=== PATIENT | female | born 1945 | race Caucasian/White ===

== ENCOUNTER → 2018-02-16 | Outpatient (REF) | payer MEDICARE ==
[2018-02-16 14:33] LABS: FREE T4 0.79 NG/DL (0.76-1.46)
== END ==
LOC: M LAB REF 12:55
DX: N18.3 Chronic kidney disease, stage 3 (moderate) (principal); R63.5 Abnormal weight gain
CPT/HCPCS: 84443

== ENCOUNTER → 2020-03-18 | Outpatient (REF) | payer MEDICARE | LOC: M LAB REF 16:46 | PROVIDERS: ATTEND Internal Medicine Nephrology | DX: N18.32 Chronic kidney disease, stage 3b (principal); N39.0 Urinary tract infection, site not specified ==

== ENCOUNTER 2020-10-26 17:05 | Inpatient (IN) | payer MEDICARE ==
[~2020-10-26] VITALS: Ht 154.9 cm; Wt 125.1 kg
[2020-10-26] MEDS: HumaLOG INSULIN (NovoLOG) PER UNIT SC SCH ×2 (18:00→23:25)
[2020-10-26 19:00] VITALS: BP 153/98
[2020-10-26] MEDS ORDERED: AMLO2.5T3 PO (19:18)
[2020-10-26] MEDS ORDERED: METF-838 PO (19:18)
[2020-10-26] MEDS ORDERED: METO1TAB32 PO (19:18)
[2020-10-26] MEDS ORDERED: HUMA100I5 SC ×2 (19:18→19:33)
[2020-10-26] MEDS ORDERED: LEXA1TAB PO (19:18)
[2020-10-26] MEDS ORDERED: MAGN64TASA PO (19:18)
[2020-10-26] MEDS ORDERED: FURO20TA2 PO (19:19)
[2020-10-26] MEDS ORDERED: ATOR1TAB21 PO (19:19)
[2020-10-26] MEDS ORDERED: QUIN40TA26 PO (19:19)
[2020-10-26] MEDS ORDERED: HYDROMORPHONE HCL 0.5 MG/ 0.5 ML SYRINGE (J1170 PER 1) IV PRN ×2 (19:20)
[2020-10-26] MEDS ORDERED: MAALOX 30 ML SUSP *UDC PO PRN (19:20)
[2020-10-26] MEDS ORDERED: MOM 30ML SUSPENSION UDC PO PRN (19:20)
[2020-10-26] MEDS ORDERED: INSU100I9 SC (19:33)
[2020-10-26] MEDS ORDERED: HOME MED LIST COMPLETE! XX SCH (19:35)
--- NOTE | 2020-10-26 19:58 | HPEPDOC ---
[facility] Medical History & Physical Date of Admission Oct 26, 2020 Date of Service: Oct 26, 2020 Attending Physician: YG DAUGHERTY MD History and Physical TIME OF SERVICE: 750pm CHIEF COMPLAINT: fall HISTORY OF PRESENT ILLNESS: , a 75 yr old F, had a fall while walking into the door way. When [facility] pulled the door open, to let her into the house, was holding on to the door handle and fell down. As a result of the fall she developed a right distal Tib/Fib fx; she was transferred here from [facility] for Ortho eval. Currently her pain is well controlled REVIEW OF SYSTEMS: 10-point review of systems negative except as listed in HPI PAST MEDICAL/ SURGICAL HISTORY: IDDM, essential HTN, class 3 obesity, appendectomy SOCIAL HISTORY: She doesnt smoke, drink or use recreational drugs. FAMILY HISTORY: DM & HTN ALLERGIES: Please see below. HOME MEDICATIONS: Please see below. PHYSICAL EXAMINATION: Vital Signs Date Time Temp Pulse Resp B/P (MAP) Pulse Ox O2 Delivery O2 Flow Rate FiO2 10/26/20 19:00 98.2 66 18 153/98 (116) 95 Room Air GENERAL APPEARANCE: well-nourished and developed/ NAD HEENT: EOMI / MMM&P CARDIOVASCULAR: RRR/NMRG LUNGS: CTAB on RA ABDOMEN: contour convex MUSCULOSKELETAL: NCAT / ELOISA x 3 extremities except right LE which is wrapped in a cast INTEGUMENT: not flushed, pale or diaphoretic NEUROLOGICAL: CN 2-12 grossly intact / speech not dysarthric PSYCHIATRIC: A&O x3 / able to understand and follow all commands LABORATORY DATA: pending.... IMAGING: XRAY from [facility] IMPRESSION: Acute fractures of the medial and lateral malleoli with disruption of the ankle mortise. MICROBIOLOGY: Respiratory panel is negative ASSESSMENT: is a75 yr old w HTN and IDDM who was transferred from [facility] for surgical management of right distal tib/fib fxs. PLAN: 1 Distal Tib/Fib Fx 2/2 Mechanical Fall Her RCRI score is 1; prior to surgery we will need to check a BNP, if it is high we will order and EKG and check a troponin daily for then next 2 or 3 days. Othe r than that she doesnt need additional testing prior to preceding with surgery. Plan: admit to [facility] / NPO after midnight w IVF for surgery possibly tomorrow / Ortho consult () / day time team to consult PT & OT / pain control w Dilaudid & Miralax to prevent constipation / when the patient is read for discharge her PCP may consider ordering DEXA scan and performing risk stratification with the use of FRAX score or another other risk stratification to determine if she has Osteoporosis 2 Essential HTN We will hold the ACEI to reduce the risk of perioperative hypotension. It can be resumed on POD #2 Plan: lasix & hydralazine PRN for SBP >140 3 IDDM2 Plan: diabetic diet tonight then NPO with accuchecks Q6H / hypoglycemia protocol / she is only taking high doses of sliding scale insulin with metformin w/o long acting insulin / for now we will c/w SSI / hold oral anti-glycemics / f/u A1C / her PCP may consider out pt Endo referral to switch the patient from basal bolus injections to continuous subcutaneous insulin infusion which has been shown to produced small improvements in A1C, improve QOL and reduce episodes of severe hypoglycemia 4 Class 3 Obesity Complicates care DVT px w Heparin (This can be discontinued at 4H prior to surgery.) (Og Pre diction Score to determine the in-patient risk of VTE & need for anticoagulation is 5. Individuals with a Og Score <4 are low risk of VTE and thromboprophylaxis should be considered on a wesi-li-wblc basis while individuals with a Og score >4 are high risk for VTE and will likely benefit from thromboprophylaxis unless the patient has major contraindication such as major bleeding or thrombocytopenia). Dispo: home after at least 2 midnights stay Home Medications Scheduled Atorvastatin Calcium (Atorvastatin Calcium) 20 Mg Tablet, 20 MG PO QHS Escitalopram Oxalate (Lexapro) 10 Mg Tablet, 10 MG PO DAILY Furosemide (Furosemide) 20 Mg Tablet, 20 MG PO BID 2ND AT NOON Insulin Lispro (Humalog Kwikpen U-100) 100 Unit/1 Ml Insuln.pen, 54 UNITS SC QAM MORNING Insulin Lispro (Insulin Lispro Kwikpen U-100) 100 Unit/1 Ml Insuln.pen, 40 UNIT SC DAILY @ LUNCH Insulin Lispro (Humalog Kwikpen U-100) 100 Unit/1 Ml Insuln.pen, 50 UNITS SC QPM DINNER Magnesium Chloride (Mag64) 64 Mg Tablet.dr, 64 MG PO DAILY Metformin HCl (Metformin HCl ER) 500 Mg Tab.er.24h, 1,000 MG PO BID Metoprolol Succinate (Metoprolol Succinate) 25 Mg Tab.er.24h, 25 MG PO DAILY Quinapril HCl (Quinapril HCl) 40 Mg Tablet, 40 MG PO DAILY Allergies Coded Allergies: Sulfa (Sulfonamide Antibiotics) (Verified Allergy, Intermediate, SWELLING, 10/26/20) A-FIB/CHADSVASC A-FIB History Current/History of A-Fib/PAF?: No Current PO Anticoag Therapy: No YG DAUGHERTY MD Oct 26, 2020 19:58
[2020-10-26] MEDS ORDERED: DEXTROSE 50% 50 ML SYRINGE IV PRN (20:00)
[2020-10-26] MEDS ORDERED: GLUCOSE 4GM CHEW TABLET PO PRN (20:00)
[2020-10-26] MEDS ORDERED: GLUCAGON INJ 1MG VIAL SC PRN (20:00)
[2020-10-26] MEDS: ACETAMINOPHEN TAB 650MG DOSE (2X325MG) PO PRN (20:52)
[2020-10-26] MEDS: MIRALAX *UNIT DOSE* 17GM PACKET PO SCH (20:52)
[2020-10-26 21:24] LABS: HEMATOCRIT 36.2 % (36.0-47.0); HEMOGLOBIN 11.4 g/dl (12.0-15.5); MEAN CORPUSCULAR HEMOGLOBIN 28.9 pg (27.0-33.0); MEAN CORPUSCULAR HGB CONC 31.5 g/dl (32.0-36.5); MEAN CORPUSCULAR VOLUME 91.9 fl (80.0-96.0); PLATELET COUNT, AUTOMATED 188 10^3/uL (150-450); RED BLOOD COUNT 3.94 10^6/uL (4.00-5.40); WHITE BLOOD COUNT 8.3 10^3/uL (4.0-10.0)
[2020-10-26 21:35] LABS: INR 1.13; PROTHROMBIN TIME 14.9 SECONDS (12.7-14.5)
[2020-10-26 21:53] LABS: ALBUMIN 3.2 GM/DL (3.2-5.2); ALT/SGPT 23 U/L (12-78); BILIRUBIN,TOTAL 0.4 MG/DL (0.2-1.0); BLOOD UREA NITROGEN 29 MG/DL (7-18); CALCIUM LEVEL 8.4 MG/DL (8.8-10.2); CARBON DIOXIDE LEVEL 28 MEQ/L (21-32); CHLORIDE LEVEL 106 MEQ/L (98-107); CREATININE FOR GFR 1.25 MG/DL (0.55-1.30); GLOMERULAR FILTRATION RATE 44.6 (>39); GLUCOSE, FASTING 132 MG/DL (70-100); NT-PRO BNP 548 PG/ML (<125); POTASSIUM SERUM 4.4 MEQ/L (3.5-5.1); SODIUM LEVEL 141 MEQ/L (136-145); TOTAL PROTEIN 5.8 GM/DL (6.4-8.2)
[2020-10-26] MEDS ORDERED: HEPARIN SOD (PORCINE) 5000UNITS/ML 1ML VIAL/SYRINGE SC SCH (22:00)
[2020-10-26 22:48] LABS: TROPONIN I < 0.02 NG/ML (< 0.10)
[2020-10-26] MEDS: ATORVASTATIN 20 MG TAB PO SCH (23:24)
[2020-10-27] MEDS ORDERED: D5W/0.9% SODIUM CHLORIDE 1,000 ML IV SCH
[2020-10-27 06:00] VITALS: BP 161/65
[2020-10-27] MEDS: HumaLOG INSULIN (NovoLOG) PER UNIT SC SCH ×3 (06:55→18:00)
[2020-10-27] MEDS ORDERED: MIDAZOLAM INJ 2MG/2ML VIAL (J2250 PER 1MG) IV PRN (07:01)
[2020-10-27] MEDS ORDERED: fentaNYL 100 MCG/2 ML INJECTION (J3010) IV PRN ×2 (07:01→18:35)
[2020-10-27 07:16] LABS: HEMATOCRIT 36.1 % (36.0-47.0); HEMOGLOBIN 11.4 g/dl (12.0-15.5); MEAN CORPUSCULAR HEMOGLOBIN 28.8 pg (27.0-33.0); MEAN CORPUSCULAR HGB CONC 31.6 g/dl (32.0-36.5); MEAN CORPUSCULAR VOLUME 91.2 fl (80.0-96.0); PLATELET COUNT, AUTOMATED 185 10^3/uL (150-450); RED BLOOD COUNT 3.96 10^6/uL (4.00-5.40); WHITE BLOOD COUNT 5.9 10^3/uL (4.0-10.0)
[2020-10-27 07:29] LABS: BLOOD UREA NITROGEN 31 MG/DL (7-18); CALCIUM LEVEL 8.2 MG/DL (8.8-10.2); CARBON DIOXIDE LEVEL 27 MEQ/L (21-32); CHLORIDE LEVEL 106 MEQ/L (98-107); CREATININE FOR GFR 1.26 MG/DL (0.55-1.30); GLOMERULAR FILTRATION RATE 44.2 (>39); GLUCOSE, FASTING 241 MG/DL (70-100); SODIUM LEVEL 139 MEQ/L (136-145); TROPONIN I < 0.02 NG/ML (< 0.10)
[2020-10-27] MEDS ORDERED: QUINAPRIL 20 MG TAB PO SCH (09:00)
--- NOTE | 2020-10-27 09:00 | CR ---
CONSULTATION DATE: 10/26/2020 TIME: 7 pm CONSULTED SERVICE: Orthopaedic surgery. CONSULTED PHYSICIAN: Jd Polo MD HISTORY OF PRESENT ILLNESS: This is a 75-year-old female who sustained a ground level fall while playing with her grandchildren in the afternoon of 10/26/2020. Patient initially presented to [facility] but was transferred to the [facility] for right ankle fracture stabilization status post right ankle fracture. Patient has a diagnosis of a right ankle distal fibular fracture, as well as a medial malleolar fracture. Her fracture is closed. There is no breaks in the skin. She was splinted at the [facility] and she was admitted by the hospitalist for further evaluation and treatment by orthopaedics. PAST MEDICAL HISTORY: Diabetes, hypertension. PAST SURGICAL HISTORY: Patient denies. ALLERGIES: Patient reports SULFA BASED drug allergies. CURRENT MEDICATIONS: Medications for hypertension and diabetes, patient left list at home and is calling her support network for her medication list. SOCIAL HISTORY: Nondrinker, nonsmoker, non-IV drug user. Lives at home alone. Is a community ambulator without assistive devices. REVIEW OF SYSTEMS: 12-point review of systems was negative unless as otherwise described in the history of present illness (HPI) above. PHYSICAL EXAMINATION: Alert and oriented to person, time, and place. She had tenderness to palpation through her splint to the medial and lateral aspect of her right ankle. She had an otherwise neurovascularly intact right lower extremity with 5/5 motor strength to the extensor hallucis longus (EHL), flexor hallucis longus (FHL), tibialis anterior, gastrocnemius, and peroneal musculature. She had sensation intact to light touch to the deep and superficial peroneal, sural, saphenous, and tibial nerve distributions. She had 2+ dorsalis pedis and posterior tibial arterial pulse. Brisk capillary refill to the digits was under 2 seconds with refill. Radiographs demonstrate a distal fibular spiral fracture as well as a medial malleolar fracture. The talus is translated laterally with an unstable bimalleolar ankle fracture. IMPRESSION: 75-year-old female with an unstable right bimalleolar ankle fracture which is closed requiring surgical fixation for stabilization. PLAN: At this point in time, the patient will get her COVID test, which is pending, she will remain nothing by mouth at 11:59 p.m. on 10/26/2020. Given the instability of the patient's right ankle, the patient will require operative intervention for open reduction internal fixation of the right ankle in order to stabilize and promote healing so the patient may walk without pain. The patient will be cared for by the hospitalist and she will undergo surgical fixation on 10/26/2020.
[2020-10-27] MEDS: METOPROLOL SUCC *XL* 25MG TAB (TopROL *XL*) PO SCH (09:04)
[2020-10-27] MEDS: ESCITALOPRAM OXALATE 10 MG TAB (LEXAPRO) PO SCH (09:04)
[2020-10-27] MEDS: FUROSEMIDE 20 MG TAB PO SCH ×2 (09:05→17:00)
[2020-10-27] MEDS ORDERED: LIDOCAINE 1% MDV 20ML VIAL XX ONE (11:50)
[2020-10-27] MEDS ORDERED: dexameTHASONE 10MG/1ML VIAL PRES.FREE (J1100 PER 1MG) XX ONE (11:50)
[2020-10-27] MEDS ORDERED: EPINEPHrine INJ 1 MG/ML 1ML AMP XX ONE (11:50)
[2020-10-27] MEDS ORDERED: ROPIvacaine 0.5% 30ML INJECTION (J2795 PER 1MG) XX ONE (11:50)
[2020-10-27] MEDS ORDERED: fentaNYL 100 MCG/2 ML INJECTION (J3010) IV SCH (11:51)
[2020-10-27] MEDS ORDERED: MIDAZOLAM INJ 2MG/2ML VIAL (J2250 PER 1MG) IV SCH (11:51)
--- NOTE | 2020-10-27 12:03 | IPNPDOC ---
Date Seen The patient was seen on 10/27/20. Progress Note SUBJECTIVE: Complained of headache 10 out of 10 pain with no history of recent trauma or syncopal episode at home after the fall yesterday Some nausea without vomiting no abdominal pain 5 out of 10 pain from the fracture OBJECTIVE PHYSICAL EXAMINATION: VITAL SIGNS: Please see below. GENERAL: No distress HEENT: Face is symmetric tongue is midline no thyromegaly cervical lymphadenopathy or jugular venous distention CARDIOVASCULAR: S1-S2 sinus rhythm RESPIRATORY: Clear to auscultation bilaterally ABDOMINAL: Positive bowel sounds soft obese nontender nondistended EXTREMITIES: No cyanosis or clubbing skin warm dry well perfused pink in color bandaged right lower extremity LABORATORY DATA, IMAGING STUDIES, MICROBIOLOGY: Please see below. ASSESSMENT AND PLAN: 75-year-old female status post mechanical fall at home without prodromal symptoms found to have a right distal tibial fracture t [facility] to [facility] for orthopedic surgical services Mechanical fall Right tib-fib fracture Headache Class III obesity BMI 51 Insulin-dependent type 2 diabetes Hypertension Plan: N.p.o. status IV fluids to prevent hypoglycemia orthopedic surgery for surgical intervention As needed pain medications Reglan and Toradol for headache Hypoglycemic protocol with insulin sliding scale with coverage ARU consult postop and DVT prophylaxis. VS[facility]&O Vital Signs Date Time Temp Pulse Resp B/P (MAP) Pulse Ox O2 Delivery O2 Flow Rate FiO2 10/27/20 09:04 66 152/68 10/27/20 06:00 98.2 17 90 Room Air I&O- Last 24 Hours up to 6 AM 10/27/20 06:00 Intake Total 120 ml Output Total 300 ml Balance -180 ml Laboratory Data 24H LABS Laboratory Tests 2 10/26/20 18:58: Coronavirus (COVID-19)(PCR) NEGATIVE 10/26/20 19:20: Nucleated Red Blood Cells % (auto) 0.0, Prothrombin Time 14.9H, Prothromb Time International Ratio 1.13, Anion Gap 7L, Glomerular Filtration Rate 44.6, Calcium Level 8.4L, Total Bilirubin 0.4, Aspartate Amino Transf (AST/SGOT) 14, Alanine Aminotransferase (ALT/SGPT) 23, Alkaline Phosphatase 65, Troponin I < 0.02, QV-Rfr-D-Type Natriuretic Peptide 548H, Total Protein 5.8L, Albumin 3.2, Albumin/Globulin Ratio 1.2 10/26/20 23:20: Bedside Glucose (Misc Panel) 242H 10/27/20 06:09: Nucleated Red Blood Cells % (auto) 0.0, Anion Gap 6L, Glomerular Filtration Rate 44.2, Calcium Level 8.2L, Troponin I < 0.02 10/27/20 06:20: Bedside Glucose (Misc Panel) 232H 10/27/20 11:31: Bedside Glucose (Misc Panel) 234H CBC/BMP Laboratory Tests 10/26/20 19:20 10/27/20 06:09 JEFERSON GALARZA MD Oct 27, 2020 12:03
[2020-10-27] MEDS ORDERED: LIDOCAINE 2% 100MG/5ML SDV (FOR ANES.) As Ordered ONE (14:41)
[2020-10-27] MEDS ORDERED: fentaNYL 100 MCG/2 ML INJECTION (J3010) As Ordered ONE ×2 (14:41→17:15)
[2020-10-27] MEDS ORDERED: ROCURONIUM BROMIDE 50 MG/5 ML VIAL As Ordered ONE (14:41)
[2020-10-27] MEDS ORDERED: propofoL 200 MG/20 ML VIAL As Ordered ONE (14:41)
[2020-10-27] MEDS ORDERED: TRANEXAMIC ACID 100 MG/ML 10ML VIAL As Ordered ONE ×2 (15:10→15:53)
[2020-10-27] MEDS ORDERED: ceFAZolin 2 GM/D5W 50 ML IV BAG (J0690 PER 500MG) As Ordered ONE (15:10)
[2020-10-27] MEDS ORDERED: ONDANSETRON 4MG/2ML VIAL As Ordered ONE (16:01)
[2020-10-27] MEDS ORDERED: ePHEDrine SULFATE 25 MG/5 ML(5MG/ML) SYRINGE As Ordered ONE (16:10)
[2020-10-27] MEDS ORDERED: ACETAMINOPHEN 1000MG 100ML IV BTL (OFIRMEV) (J0131 PER 10MG) As Ordered ONE (16:25)
[2020-10-27] MEDS ORDERED: SUGAMMADEX SODIUM 500 MG/5 ML VIAL (BRIDION) As Ordered ONE (16:26)
[2020-10-27] MEDS ORDERED: hydrALAZINE 20MG/ML 1ML VIAL (J0360 PER 20MG) As Ordered ONE (16:55)
--- NOTE | 2020-10-27 17:50 | REP ---
INDICATION: FIBULA NAIL IN OR. COMPARISON: None. TECHNIQUE: Intraoperative fluoroscopic imaging using portable C-arm technique. FINDINGS: Status post satisfactory open reduction and fixation for medial and lateral malleolar fractures. Total fluoroscopic time 220.8 seconds. IMPRESSION: Satisfactory open reduction and fixation for by malleolar fractures. <Electronically signed by Arias Mast > 10/27/20 [id number]
--- NOTE | 2020-10-27 18:04 | REPVR ---
PROCEDURE INFORMATION: Exam: XR Right Ankle Exam date and time: 10/26/2020 8:46 PM Age: 75 years old Clinical indication: Other: Preop; Additional info: R ankle fracture TECHNIQUE: Imaging protocol: XR Right ankle. Views: 3 or more views. COMPARISON: No relevant prior studies available. FINDINGS: Bones/joints: In cast views demonstrate a distal fibular and medial malleolar fracture. There is widening of the ankle mortise. Cast obscures bone detail which limits evaluation for additional fractures. Soft tissues: Normal. IMPRESSION: In cast views demonstrate a distal fibular and medial malleolar fracture. There is widening of the ankle mortise. Cast obscures bone detail which limits evaluation for additional fractures. Electronically signed by: Puneet Saleh On 10/27/2020 18:04:07 PM
[2020-10-27] MEDS ORDERED: HumaLOG INSULIN (NovoLOG) PER UNIT SC STA (18:30)
[2020-10-27] MEDS ORDERED: oxyCODONE 5MG TAB PO PRN (18:35)
[2020-10-27] MEDS ORDERED: HYDROMORPHONE HCL 0.5 MG/ 0.5 ML SYRINGE (J1170 PER 1) IV PRN (18:35)
[2020-10-27] MEDS ORDERED: LR 1,000 ML IV SCH (18:35)
[2020-10-27 18:50] VITALS: BP 143/65
[2020-10-27 19:20] VITALS: BP 139/62
--- NOTE | 2020-10-27 19:38 | RO ---
OPERATIVE NOTE DATE OF OPERATION: 10/27/2020 TIME: 3 p.m. PREOPERATIVE DIAGNOSIS: Right closed ankle fracture including the distal fibula and the medial malleolus. POSTOPERATIVE DIAGNOSIS: Right closed ankle fracture including the distal fibula and the medial malleolus. NAME OF OPERATION: Right ankle open reduction and internal fixation. SURGEON: Jd Polo MD PUMP AND BLOWER OPERATOR: None. SUPERVISING ATTENDING: Jd Polo MD FINDINGS: The patient had an unstable right ankle fracture with displacement of the distal fibula as well as the medial malleolus. She had lateral translation of the talus relative to the mortise. INDICATIONS: A 75-year-old female who sustained a closed right ankle fracture after a ground-level fall while playing with her grandchildren in the afternoon of 10/26/2020. The patient initially presented to [facility] but was transferred to [facility] for the right ankle fracture stabilization, status post right ankle fracture. The patient has a diagnosis of a right ankle distal fibular fracture as well as a medial malleolar fracture. The patient's fracture is closed. There are no breaks in the skin. She was splinted at the [facility]. She was admitted by the hospitalist for further and treatment by orthopedic surgery, indicated for right ankle open reduction and internal fixation. ANESTHESIA: GETA. TOURNIQUET TIME: 14 minutes. ESTIMATED BLOOD LOSS: 50 mL. IV FLUIDS: Please see anesthesia report. IV ANTIBIOTICS: Please see anesthesia report. IMPLANTS: Arthrex. CULTURES: None. SPECIMENS: None. DESCRIPTION OF PROCEDURE: The patient was met in the preoperative holding area where the patient's operative extremity was signed, the patient's consent was confirmed to be correct. The patient's identity was confirmed to be correct. The patient was then transported to the operating theater where she was placed in supine position on a regular surgical flat-top bed with a radiolucent diving board extension. A safety strap secured the patient to the bed. All bony prominences were well padded. The contralateral lower extremity had an SCD placed. A timeout was called which confirmed the correct patient, correct operative extremity and correct consent. All staff was in agreement. The patient was then draped in the usual sterile fashion. We began the procedure by obtaining fluoroscopic imaging of the patient's right ankle with an AP and lateral view demonstrating the fracture location. We then ensured that the talus was reduced within the mortise. Using fluoroscopy, we placed a percutaneous [id number] bone reducing clamp to stabilize the distal fibula spiral fracture. Once this was stabilized, we then used a guide pin in order to gain access to the fibular medullary canal in retrograde fashion. Once this was advanced through the fracture and up the proximal aspect of the patient's fibula, we then used this to place our entry cannulated reamer to the level of the laser line. We then repeated this with a thinner reamer up the length of the fibula. Once this was complete, we then used the sled in order to place our fibular nail in position. This was advanced with light taps of the mallet. We then deployed the talons at the proximal aspect of the fibular nail and secured it in position. We then used the jig on the fibular nail to place three distal interlocking screws. At this point in time, we then placed two addition tetracortical syndesmotic screws in order to provide robust stabilization of the patient's distal fibular fracture. At the completion of this, we then turned our attention to the medial malleolar fracture which was now reduced after reduction of the fibular fracture. We made two small percutaneous incisions and placed two guide pins orthogonal to the medial malleolar fracture. Using these guide pins, we then placed two 4.0 mm partially threaded cannulated screws into position using fluoroscopy and percutaneous in nature in order to minimize the chance of wound complications. These were both 60 mm in length. We then removed our threaded guide pin and ensured that these were seated properly on the medial malleolus. We then copiously irrigated all surgical sites. We closed all percutaneous incisions using 2-0 Vicryl and 3-0 nylon suture. We placed Adaptic over the surgical wounds followed by the [id number] and placed the patient in a well-padded L and U splint. The patient was then extubated without complication and transported to the postanesthesia care unit. Given the patient's diabetic medical history, she will be nonweightbearing to the right lower extremity for 12 weeks. She will follow the fibular nail and diabetic ankle open reduction and internal fixation rehabilitative protocol which includes early range of motion at two weeks and nonweightbearing for 12 weeks and two weeks for follow up in the [facility] orthopedic clinic for removal of her L and U splint for a CAM boot which will be provided at [facility]. We will remove her sutures either at 2 or 4 weeks depending on healing. She will then follow up on the November, to follow up with Dr. Polo for a second postoperative wound check. Her care will be transferred to the hospitalist who will provide her discharge pain medication. She will be notified of the aforementioned proceedings at her postoperative visit.
[2020-10-27 20:20] VITALS: BP 140/63
[2020-10-27] MEDS: ATORVASTATIN 20 MG TAB PO SCH (21:00)
[2020-10-27] MEDS: ACETAMINOPHEN TAB 650MG DOSE (2X325MG) PO PRN (21:00)
[2020-10-27] MEDS: MIRALAX *UNIT DOSE* 17GM PACKET PO SCH (21:00)
[2020-10-27 23:20] VITALS: BP 110/53
[2020-10-28] MEDS: HumaLOG INSULIN (NovoLOG) PER UNIT SC SCH ×4 (05:34→21:17)
[2020-10-28 06:00] VITALS: BP 158/67
--- NOTE | 2020-10-28 08:10 | ECGEPIP ---
[facility] Test Date: 2020-10-27 Pat Name: HERSON GAMBLE Department: Room: [place] [address] Gender: Female Outbound Supervisor: SCOTT : [id number] Requested By: YG DAUGHERTY Order Number: [id number] Reading MD: Ulises Cooley Measurements Intervals [place] Rate: 66 P: -20 NV: 186 QRS: -52 QRSD: 156 T: 19 QT: 456 QTc: 478 Interpretive Statements somatic artifact Normal sinus rhythm LA conduction disturbance First-degree AV block Left anterior hemiblock Right bundle branch block No prior tracing for comparison. Clincal correlation advised Electronically Signed on 10-28-2020 8:10:12 EDT by Ulises Cooley
[2020-10-28] MEDS: FUROSEMIDE 20 MG TAB PO SCH ×2 (08:11→16:03)
[2020-10-28] MEDS: ESCITALOPRAM OXALATE 10 MG TAB (LEXAPRO) PO SCH (08:11)
[2020-10-28] MEDS: METOPROLOL SUCC *XL* 25MG TAB (TopROL *XL*) PO SCH (08:13)
[2020-10-28] MEDS: ACETAMINOPHEN TAB 650MG DOSE (2X325MG) PO PRN (09:25)
[2020-10-28] MEDS ORDERED: ENOXAPARIN 40MG/0.4ML SYRINGE (J1650 PER 10MG) SC ONE (10:45)
[2020-10-28 14:00] VITALS: BP 156/66
[2020-10-28] MEDS: PERCOCET 5MG/325MG TAB PO SCH ×2 (16:00→21:00)
--- NOTE | 2020-10-28 17:18 | IPN ---
PROGRESS NOTE DATE: 10/28/2020 SUBJECTIVE: Patient said that her pain started to act up even after taking 2 Tylenol. She does have I.V. medications for breakthrough pain. Her pain worsens when she bears weight and tries to ambulate otherwise she has no pain at all. OBJECTIVE: Vital signs: Temperature 98.2, pulse 66, respiratory rate 16, blood pressure 169/71, 95% on room air. General: Awake, alert, oriented to person, place and time, answering questions appropriately. Lungs: Clear to auscultation, no wheezes, rhonchi or rales. Heart: S1 and S2 sinus rhythm. Abdomen: Obese, soft, nontender, nondistended. Extremities: No cyanosis or clubbing. Right lower extremity is bandaged. LABORATORY DATA: Laboratory data and microbiology have been reviewed. IMAGING STUDIES: Reviewed. ASSESSMENT: 75-year-old female had a mechanical fall at home without prodromal symptoms found to have a right distal tibial fracture and transferred from [facility] to [facility] for orthopedic services. IMPRESSIONS/PLANS: 1. Mechanical fall with right tib-fib fracture: Post-op day number 1 patient is managed by orthopedic surgery. Currently on DVT prophylaxis, bowel regimen, pain control. Since patient has had no pain control with Tylenol we will give Percocet 1 three times a day. ARU has been consulted. Possibly home with services. Patient is anxious to go home soon. 2. Class 3 obesity, BMI 51: Complicating her care. 3. Insulin dependent type-2 diabetes: On insulin sliding scale, fingersticks. Glucose has been elevated to 417 due to recent I.V. fluids given for n.p.o. status. We will start on Levemir insulin 10 units at bedtime and titrate as needed for better glycemic control. 4. Disposition: Await ARU screen. 5. DVT prophylaxis: With Lovenox subcu.
[2020-10-28] MEDS: MIRALAX *UNIT DOSE* 17GM PACKET PO SCH (21:00)
[2020-10-28] MEDS ORDERED: LEVEMIR (INSULIN DETEMIR) 1 UNITS/0.01ML SC SCH (21:00)
[2020-10-28] MEDS: ATORVASTATIN 20 MG TAB PO SCH (21:16)
[2020-10-28 22:00] VITALS: BP 161/64
[2020-10-28] MEDS: **hydrALAZINE** 10 MG TAB PO PRN (23:16)
[2020-10-29] MEDS: ACETAMINOPHEN TAB 650MG DOSE (2X325MG) PO PRN ×3 (03:10→20:38)
[2020-10-29 06:00] VITALS: BP 152/63
[2020-10-29] MEDS: ENOXAPARIN 40MG/0.4ML SYRINGE (J1650 PER 10MG) SC SCH (08:07)
[2020-10-29] MEDS: HumaLOG INSULIN (NovoLOG) PER UNIT SC SCH ×4 (08:07→20:37)
[2020-10-29] MEDS: ESCITALOPRAM OXALATE 10 MG TAB (LEXAPRO) PO SCH (08:08)
[2020-10-29] MEDS: FUROSEMIDE 20 MG TAB PO SCH ×2 (08:08→17:19)
[2020-10-29] MEDS: PERCOCET 5MG/325MG TAB PO SCH (08:08)
[2020-10-29] MEDS: METOPROLOL SUCC *XL* 25MG TAB (TopROL *XL*) PO SCH (08:13)
[2020-10-29 08:14] VITALS: BP 166/66
--- NOTE | 2020-10-29 10:29 | IPN ---
PROGRESS NOTE DATE: 10/29/2020 SUBJECTIVE: Kiah is seen on [address] [place]. She was admitted with mechanical fall, right tibular/fibular fracture, postop day #2. Denies any chest pain or shortness of breath. She says her pain is under fairly good control. She has Type 2 diabetes requiring insulin at home. Hypertension and obesity. OBJECTIVE: VITAL SIGNS: Afebrile, blood pressure 166/66, pulse 68, afebrile. GENERAL APPEARANCE: Alert, conversant, in no acute distress. LUNGS: Clear. HEART: Regular rhythm. ABDOMEN: Soft, nontender. EXTREMITIES: No peripheral edema. LABORATORY DATA: She has a negative troponin. No CBC or electrolytes in the last few days. IMPRESSION: 1. Status post right tib/fib fracture, ARU consult has been ordered, DVT prophylaxis has been ordered. 2. Diabetes, will increase the dose of her Detemir insulin. Continue sliding scale with coverage. 3. Hypertension, blood pressure is a little elevated but I think it is situational. 4. History of depression. Continue Lexapro 10 mg daily. 5. Disposition: Awaiting ARU evaluation.
[2020-10-29] MEDS ORDERED: traMADol 50 MG TAB PO PRN (13:15)
[2020-10-29 14:00] VITALS: BP 161/64
[2020-10-29] MEDS: **hydrALAZINE** 10 MG TAB PO PRN (20:37)
[2020-10-29] MEDS: ATORVASTATIN 20 MG TAB PO SCH (20:37)
[2020-10-29] MEDS: MIRALAX *UNIT DOSE* 17GM PACKET PO SCH (20:38)
[2020-10-29] MEDS ORDERED: LEVEMIR (INSULIN DETEMIR) 1 UNITS/0.01ML SC SCH (21:00)
[2020-10-29 22:00] VITALS: BP 177/73
[2020-10-30 06:00] VITALS: BP 176/74
[2020-10-30 06:15] LABS: BASO % 0.6 % (0.0-1.0); EOS # 0.4 10^3/uL (0.0-0.5); EOS % 5.2 % (0.0-3.0); HEMATOCRIT 31.8 % (36.0-47.0); HEMOGLOBIN 9.8 g/dl (12.0-15.5); LYMPH # 1.8 10^3/uL (1.5-5.0); LYMPH % 27.4 % (24.0-44.0); MEAN CORPUSCULAR HEMOGLOBIN 28.7 pg (27.0-33.0); MEAN CORPUSCULAR HGB CONC 30.8 g/dl (32.0-36.5); MEAN CORPUSCULAR VOLUME 93.3 fl (80.0-96.0); MONO # 0.5 10^3/uL (0.0-0.8); MONO % 7.8 % (2.0-8.0); NEUTROPHILS # 3.9 10^3/uL (1.5-8.5); NEUTROPHILS % 58.6 % (36.0-66.0); PLATELET COUNT, AUTOMATED 175 10^3/uL (150-450); RED BLOOD COUNT 3.41 10^6/uL (4.00-5.40); WHITE BLOOD COUNT 6.7 10^3/uL (4.0-10.0)
[2020-10-30 06:29] LABS: BLOOD UREA NITROGEN 20 MG/DL (7-18); CALCIUM LEVEL 8.4 MG/DL (8.8-10.2); CARBON DIOXIDE LEVEL 30 MEQ/L (21-32); CHLORIDE LEVEL 105 MEQ/L (98-107); CREATININE FOR GFR 0.88 MG/DL (0.55-1.30); GLOMERULAR FILTRATION RATE > 60.0 (>39); GLUCOSE, FASTING 249 MG/DL (70-100); POTASSIUM SERUM 4.4 MEQ/L (3.5-5.1); SODIUM LEVEL 138 MEQ/L (136-145)
[2020-10-30] MEDS: ACETAMINOPHEN TAB 650MG DOSE (2X325MG) PO PRN ×2 (06:29→20:01)
[2020-10-30] MEDS: ESCITALOPRAM OXALATE 10 MG TAB (LEXAPRO) PO SCH (07:44)
[2020-10-30] MEDS: ENOXAPARIN 40MG/0.4ML SYRINGE (J1650 PER 10MG) SC SCH (07:44)
[2020-10-30] MEDS: HumaLOG INSULIN (NovoLOG) PER UNIT SC SCH ×4 (07:44→22:00)
[2020-10-30] MEDS: FUROSEMIDE 20 MG TAB PO SCH ×2 (07:44→17:42)
[2020-10-30] MEDS: METOPROLOL SUCC *XL* 25MG TAB (TopROL *XL*) PO SCH (07:45)
--- NOTE | 2020-10-30 09:29 | IPN ---
PROGRESS NOTE DATE: 10/29/2020 SERVICE: Orthopedic surgery PHYSICIAN: Jd Polo MD SUBJECTIVE: The patient was resting comfortably in a chair eating dinner on rounding tonight. She is alert and oriented to person, time and place. She is postoperative day two for a right ankle open reduction, internal fixation after a bimalleolar ankle fracture which was closed. OBJECTIVE: Her splint is well positioned. It is clean, dry and intact. She reports no pain with splinting or pain to the right ankle. She is able to move her toes comfortably. She had 5/5 motor strength to the extensor hallucis longus (EHL) and flexor hallucis longus (FHL). Her tibial and peroneus musculature and gastrocnemius could not be assessed due to splinting. She had brisk capillary refill to the digits with sensation intact to light touch to the deep and superficial peroneal, sural, saphenous and tibial nerve distributions. ASSESSMENT: [age]ff[age]uc[age]ft[age]wn[age]-old female who is doing well postoperative day number two from a right ankle open reduction, internal fixation. PLAN: At this point in time, she appears to be working with physical therapy with a focus on transfers. She is currently toe-touch weightbearing to the right lower extremity and is acclimating to the use of a walker. I recommend 1-2 weeks of acute rehabilitation for transfer training as well as walker training. Patient will follow in the [facility] in two weeks for a postoperative wound check, removal of her SANTOS splint for a CAM boot/walking boot. She will be nonweightbearing to the right lower extremity for 12 weeks; however, we encourage range of motion of the right ankle beginning 3-4 weeks postoperatively.
--- NOTE | 2020-10-30 10:04 | IPN ---
PROGRESS NOTE DATE: 10/30/2020 SUBJECTIVE: Kiah is seen on 5 [place]. She is less sedated than yesterday. We reduced her opiates and she is much more alert and interactive and feels better. OBJECTIVE: NECK: No JVD. LUNGS: Clear. HEART: Regular rhythm. ABDOMEN: Soft, nontender. EXTREMITIES: No peripheral edema. LABORATORY DATA: White count 6.7, hemoglobin 9.8, platelets 175,000, sodium 138, potassium 4.4, BUN 20, creatinine 0.8, glucose 249. IMPRESSION: 1. Status post right tib/fib fracture. She has been rejected for ARU. She will need subacute rehab, SNF status today. 2. Diabetes, increase her Detemir insulin, continue sliding scale. Need to keep watching her diabetic control and adjusting the Detemir as necessary. 3. Hypertension, blood pressure is under better control today. 4. History of depression, continue on Lexapro. 5. Excessive sedation, this is improved with reducing her opiate load. I reviewed the Orthopedic note from late last night. They recommended one to two weeks of rehabilitation for transfer training and walker training, follow-up with [facility] in two weeks for postop wound check, removal of her SANTOS splint for a Cam boot/walking boot, should be nonweightbearing to the right lower extremity for 12 weeks. Recommend encouraging range of motion for the right ankle beginning in three to four weeks postoperatively. Those recommendations are appreciated.
[2020-10-30 14:00] VITALS: BP 159/62
[2020-10-30] MEDS: MIRALAX *UNIT DOSE* 17GM PACKET PO SCH (20:00)
[2020-10-30] MEDS: ATORVASTATIN 20 MG TAB PO SCH (20:02)
[2020-10-30] MEDS: **hydrALAZINE** 10 MG TAB PO PRN (20:02)
[2020-10-30] MEDS: LEVEMIR (INSULIN DETEMIR) 1 UNITS/0.01ML SC SCH (21:59)
[2020-10-30 22:00] VITALS: BP 189/69
[2020-10-30] MEDS ORDERED: **hydrALAZINE** 10 MG TAB PO ONE (23:15)
[2020-10-31] MEDS ORDERED: CAPTOpril 6.25 MG PER 1/2 TABLET PO ONE (02:00)
[2020-10-31] MEDS: **hydrALAZINE** 10 MG TAB PO PRN ×2 (05:13→20:33)
[2020-10-31 06:00] VITALS: BP 175/72
[2020-10-31] MEDS: ESCITALOPRAM OXALATE 10 MG TAB (LEXAPRO) PO SCH (08:04)
[2020-10-31] MEDS: METOPROLOL SUCC *XL* 25MG TAB (TopROL *XL*) PO SCH (08:04)
[2020-10-31] MEDS: HumaLOG INSULIN (NovoLOG) PER UNIT SC SCH ×4 (08:04→20:33)
[2020-10-31] MEDS: FUROSEMIDE 20 MG TAB PO SCH ×2 (08:04→17:22)
[2020-10-31] MEDS: ENOXAPARIN 40MG/0.4ML SYRINGE (J1650 PER 10MG) SC SCH (08:04)
[2020-10-31] MEDS: ACETAMINOPHEN TAB 650MG DOSE (2X325MG) PO PRN (12:41)
[2020-10-31 14:22] VITALS: BP 168/72
[2020-10-31] MEDS: ATORVASTATIN 20 MG TAB PO SCH (20:32)
[2020-10-31] MEDS: LEVEMIR (INSULIN DETEMIR) 1 UNITS/0.01ML SC SCH (20:34)
[2020-10-31] MEDS: MIRALAX *UNIT DOSE* 17GM PACKET PO SCH (20:34)
[2020-10-31 22:01] VITALS: BP 175/67
[2020-11-01] MEDS ORDERED: CAPTOpril 12.5 MG TAB PO ONE
[2020-11-01 06:00] VITALS: BP 174/81
[2020-11-01] MEDS: ESCITALOPRAM OXALATE 10 MG TAB (LEXAPRO) PO SCH (08:23)
[2020-11-01] MEDS: FUROSEMIDE 20 MG TAB PO SCH (08:23)
[2020-11-01] MEDS: HumaLOG INSULIN (NovoLOG) PER UNIT SC SCH (08:23)
[2020-11-01] MEDS: ENOXAPARIN 40MG/0.4ML SYRINGE (J1650 PER 10MG) SC SCH (08:23)
[2020-11-01 08:24] VITALS: BP 181/81
[2020-11-01] MEDS: METOPROLOL SUCC *XL* 25MG TAB (TopROL *XL*) PO SCH (08:24)
[2020-11-01] MEDS ORDERED: HYDR-3910 PO (09:28)
--- NOTE | 2020-11-01 10:10 | DSES ---
DISCHARGE SUMMARY DATE OF ADMISSION: 10/26/2020 DATE OF DISCHARGE: 11/01/2020 PRINCIPAL DIAGNOSIS: Status post right tib-fib fracture with open reduction and internal fixation right ankle by Dr. Polo on 10/27. SECONDARY DIAGNOSES: 1. Type 2 diabetes. 2. Hypertension. 3. History of depression. HISTORY: Kiah Marina fell and fractured her right distal tib-fib. Underwent ORIF the second day of hospitalization. HOSPITAL COURSE: Hospital course was uncomplicated. She was on a sliding scale insulin coverage. Blood pressure remained well controlled on her home regimen. She had a history of depression which remained stable on Lexapro, and she maintained her statin therapy for hyperlipidemia. She was cleared by Physical Therapy to go home today. Blood pressure is mildly elevated, but I think that is situational. PHYSICAL EXAMINATION: VITAL SIGNS: 181/80, pulse 68, respiration rate 19, 96% O2 saturation. GENERAL APPEARANCE: Alert, conversant. Looks anxious to go home. LUNGS: Clear. HEART: Regular rate and rhythm. ABDOMEN: Soft, nontender. No peripheral edema. LABORATORY DATA: Most recent CBC: White count 6.7, hemoglobin 9.8, platelets 175. Sodium 138, potassium 4.4, BUN 20, creatinine 0.8, glucose 249. Blood sugars have been between 180 and 300. DISPOSITION: She is discharged home in improved and stable condition. She will follow up with her primary care provider in a week. She is to follow up with [facility] per their office. Activity as tolerated. Continue consistent carbohydrate, no added salt diet. DISCHARGE MEDICATIONS: 1. Atorvastatin 20 mg at bedtime. 2. Lexapro 10 mg a day. 3. Furosemide 20 mg b.i.d. 4. Lispro insulin per sliding scale. 5. Metformin ER 1,000 mg b.i.d. 6. Metoprolol succinate 25 mg daily. 7. Quinapril 40 mg daily. 8. She can use MiraLax over the counter for bowel care. 9. Tylenol as needed for pain. 10. We did add hydralazine to her regimen. I am adjusting the dose to 25 mg b.i.d. for both convenience and to augment her daily hydralazine dose in the face of her blood pressure. At the time of this dictation, there are no pending labs.
[2020-11-01 12:20] LABS: BASO % 0.4 % (0.0-1.0); EOS # 0.3 10^3/uL (0.0-0.5); EOS % 3.6 % (0.0-3.0); HEMATOCRIT 37.1 % (36.0-47.0); HEMOGLOBIN 11.3 g/dl (12.0-15.5); LYMPH # 1.3 10^3/uL (1.5-5.0); LYMPH % 18.7 % (24.0-44.0); MEAN CORPUSCULAR HEMOGLOBIN 28.5 pg (27.0-33.0); MEAN CORPUSCULAR HGB CONC 30.5 g/dl (32.0-36.5); MEAN CORPUSCULAR VOLUME 93.7 fl (80.0-96.0); MONO # 0.6 10^3/uL (0.0-0.8); MONO % 9.1 % (2.0-8.0); NEUTROPHILS # 4.7 10^3/uL (1.5-8.5); NEUTROPHILS % 67.6 % (36.0-66.0); PLATELET COUNT, AUTOMATED 203 10^3/uL (150-450); RED BLOOD COUNT 3.96 10^6/uL (4.00-5.40)
[2020-11-01 12:37] LABS: CALCIUM LEVEL 9.2 MG/DL (8.8-10.2); CREATININE FOR GFR 1.01 MG/DL (0.55-1.30)
[2020-11-01 14:00] VITALS: BP 169/73
== END 2020-11-01 15:15 | disposition home health service (06) | DRG 493 ==
LOC: M ED INP 18:29 → M MS5PR 18:50
PROVIDERS: ADMIT Family Medicine; ATTEND General Practice
PROC: 0QSJ04Z Reposition Right Fibula with Internal Fixation Device, Open Approach (ICD-10-PCS; 2020-10-27)
PROC: 0QSG04Z Reposition Right Tibia with Internal Fixation Device, Open Approach (ICD-10-PCS; principal; 2020-10-27 10:01)
DX: S82.51XA Displaced fracture of medial malleolus of right tibia, initial encounter for closed fracture (principal); Z68.43 Body mass index [BMI] 50.0-59.9, adult; S82.441A Displaced spiral fracture of shaft of right fibula, initial encounter for closed fracture; E11.9 Type 2 diabetes mellitus without complications; I10 Essential (primary) hypertension; E66.9 Obesity, unspecified; Z79.899 Other long term (current) drug therapy; Z79.84 Long term (current) use of oral hypoglycemic drugs; Z88.2 Allergy status to sulfonamides; Z20.822 Contact with and (suspected) exposure to COVID-19; R51.9 Headache, unspecified; W01.0XXA Fall on same level from slipping, tripping and stumbling without subsequent striking against object, initial encounter; Y92.9 Unspecified place or not applicable; F32.9 Major depressive disorder, single episode, unspecified

== ENCOUNTER → 2020-12-12 | Outpatient (CLI) | payer MEDICARE ==
[~2020-12-12] MED LIST: AMLO2.5T3 PO; ATOR1TAB21 PO; FURO20TA2 PO; HUMA100I5 SC; HYDR-3910 PO; INSU100I9 SC; LEXA1TAB PO; MAGN64TASA PO; METF-838 PO; METO1TAB32 PO; QUIN40TA26 PO
--- NOTE | 2020-12-12 12:00 | REP ---
INDICATION: ORTHOPEDIC AFTERCARE. COMPARISON: 10/26/2020 TECHNIQUE: AP, lateral, oblique views of the right ankle FINDINGS: Satisfactory open reduction and fixation for by malleolar fractures. IMPRESSION: Status post open reduction and fixation for malleolar fractures. <Electronically signed by Arias Mast > 12/12/20 1156
--- NOTE | 2020-12-12 12:03 | REP ---
INDICATION: ORTHOPEDIC AFTERCARE. COMPARISON: None. TECHNIQUE: AP and lateral views right tibia/fibula FINDINGS: Patient is status post satisfactory open reduction and fixation for medial and lateral malleolar fractures overlying soft tissue swelling. IMPRESSION: Status post open reduction and fixation. <Electronically signed by Arias Mast > 12/12/20 1151
== END ==
LOC: M SOG 09:13
PROVIDERS: ATTEND Orthopaedic Surgery
DX: Z47.89 Encounter for other orthopedic aftercare (principal); Z87.81 Personal history of (healed) traumatic fracture

== ENCOUNTER → 2021-01-14 | Outpatient (CLI) | payer MEDICARE ==
--- NOTE | 2021-01-14 14:14 | REP ---
INDICATION: ORTHOPEDIC AFTERCARE. COMPARISON: 12/12/2020 TECHNIQUE: Two views FINDINGS: S/p ORIF status quo. No acute osseous abnormality is identified. IMPRESSION: No change <Electronically signed by Arthur Sutherland > 01/14/21 [id number]
--- NOTE | 2021-01-14 14:15 | REP ---
INDICATION: ORTHOPEDIC AFTERCARE. COMPARISON: 12/12/2020 TECHNIQUE: Three views FINDINGS: S/p ORIF status quo. Alignment and position unchanged. Plantar calcaneal heel spur status quo. No acute abnormalities are identified. IMPRESSION: Stable exam. <Electronically signed by Arthur Sutherland > 01/14/21 [id number]
== END ==
LOC: M SOG 07:57
PROVIDERS: ATTEND Orthopaedic Surgery
DX: Z47.89 Encounter for other orthopedic aftercare (principal); M77.31 Calcaneal spur, right foot; Z87.81 Personal history of (healed) traumatic fracture

== ENCOUNTER → 2024-05-18 | Day surgery (SDC) | payer MEDICARE ==
[~2024-05-18] VITALS: Ht 152.4 cm; Wt 103.1 kg
[~2024-05-18] MED LIST changes: +BSS IRRIG/VANCO(10MG)/TOBRA(5MG)/EPINEPH(1:1000-0.5CC)500ML BAG-ORONLY As Ordered ONE; +CEFUROXIME 1MG/0.1ML INTRACAMERAL INJ As Ordered ONE; +CYCLOPENTOLATE 1% OPHTH SOLN 2ML BTL OD SCH; -HYDR-3910 PO; +HYDR25TA87 PO; +INSU100I24 SC; -INSU100I9 SC; +LIDOCAINE 1% SDV 5ML VIAL As Ordered ONE; +LIDOCAINE 3.5 % 1ML OPHTH TOPICAL GEL OU ONE; +LOSA50TA28 PO; +OFLOXACIN 0.3 % (OCUFLOX) OPTH SOL 5ML OD ONE; +PHENYLEPHRINE 10% OPHTH SOL 5ML OD PRN; +PHENYLEPHRINE 2.5% OPHTH SOL 2ML OD SCH; +TROPICAMIDE 1% OPHTH SOLN 15ML OD SCH
[2024-05-18 08:07] VITALS: TEMP 97.2; O2SAT 98
[2024-05-18 08:35] VITALS: BP 218/80
== END | disposition home or self-care (01) ==
LOC: M SDC 07:30
PROVIDERS: ATTEND Ophthalmology
DX: H25.11 Age-related nuclear cataract, right eye (principal); Z53.9 Procedure and treatment not carried out, unspecified reason

== ENCOUNTER 2024-06-01 08:15 | Inpatient (IN) | payer MEDICARE ==
[~2024-06-01] VITALS: Ht 165.1 cm; Wt 109.7 kg
[2024-06-01] MEDS: OFLOXACIN 0.3 % (OCUFLOX) OPTH SOL 5ML OS ONE (06:00)
[2024-06-01] MEDS: LIDOCAINE 3.5 % 1ML OPHTH TOPICAL GEL OU ONE (06:00)
[~2024-06-01 08:15] MED LIST changes: -BSS IRRIG/VANCO(10MG)/TOBRA(5MG)/EPINEPH(1:1000-0.5CC)500ML BAG-ORONLY As Ordered ONE; -CEFUROXIME 1MG/0.1ML INTRACAMERAL INJ As Ordered ONE; -CYCLOPENTOLATE 1% OPHTH SOLN 2ML BTL OD SCH; +CYCLOPENTOLATE 1% OPHTH SOLN 2ML BTL OS SCH; -LIDOCAINE 1% SDV 5ML VIAL As Ordered ONE; -LIDOCAINE 3.5 % 1ML OPHTH TOPICAL GEL OU ONE; +MIDAZOLAM INJ 2MG/2ML VIAL As Ordered ONE; -OFLOXACIN 0.3 % (OCUFLOX) OPTH SOL 5ML OD ONE; -PHENYLEPHRINE 10% OPHTH SOL 5ML OD PRN; +PHENYLEPHRINE 10% OPHTH SOL 5ML OS PRN; -PHENYLEPHRINE 2.5% OPHTH SOL 2ML OD SCH; +PHENYLEPHRINE 2.5% OPHTH SOL 2ML OS SCH; -TROPICAMIDE 1% OPHTH SOLN 15ML OD SCH; +TROPICAMIDE 1% OPHTH SOLN 15ML OS SCH; +fentaNYL 100 MCG/2 ML INJECTION As Ordered ONE
[2024-06-01] MEDS ORDERED: ALPR0.25 PO (08:49)
[2024-06-01] MEDS: LIDOCAINE 1% SDV 5ML VIAL As Ordered ONE (09:45)
[2024-06-01] MEDS: BSS IRRIG/VANCO(10MG)/TOBRA(5MG)/EPINEPH(1:1000-0.5CC)500ML BAG-ORONLY As Ordered ONE (09:46)
[2024-06-01] MEDS: CEFUROXIME 1MG/0.1ML INTRACAMERAL INJ As Ordered ONE (09:46)
[2024-06-01] MEDS ORDERED: EPINEPHrine INJ 1 MG/ML 1ML AMP As Ordered ONE (10:08)
[2024-06-01 10:10] LABS: IONIZED CALCIUM 4.5 MG/DL (4.5-5.3)
[2024-06-01 10:15] LABS: BASO % 0.5 % (0.0-1.0); EOS # 0.2 10^3/uL (0.0-0.5); EOS % 3.8 % (0.0-3.0); HEMATOCRIT 38.2 % (36.0-47.0); HEMOGLOBIN 12.8 g/dl (12.0-15.5); LYMPH # 1.2 10^3/uL (1.5-5.0); LYMPH % 21.9 % (24.0-44.0); MEAN CORPUSCULAR HEMOGLOBIN 37.1 pg (27.0-33.0); MEAN CORPUSCULAR HGB CONC 33.5 g/dl (32.0-36.5); MEAN CORPUSCULAR VOLUME 110.7 fl (80.0-96.0); MONO # 0.5 10^3/uL (0.0-0.8); MONO % 9.1 % (2.0-8.0); NEUTROPHILS # 3.5 10^3/uL (1.5-8.5); NEUTROPHILS % 64.2 % (36.0-66.0); PLATELET COUNT, AUTOMATED 176 10^3/uL (150-450); RED BLOOD COUNT 3.45 10^6/uL (4.00-5.40); WHITE BLOOD COUNT 5.5 10^3/uL (4.0-10.0)
[2024-06-01] MEDS ORDERED: hydrALAZINE 20MG/ML 1ML VIAL As Ordered ONE (10:22)
[2024-06-01 10:28] LABS: INR 1.05; PROTHROMBIN TIME 14.1 SECONDS (12.5-14.5)
[2024-06-01] MEDS: hydrALAZINE 20MG/ML 1ML VIAL IV ONE (10:33)
[2024-06-01 10:45] LABS: ALBUMIN 3.5 G/DL (3.2-5.2); ALKALINE PHOSPHATASE 63 U/L (35-104); ALT/SGPT 16 U/L (7.0-40); AST/SGOT 25 U/L (<34); BILIRUBIN,TOTAL 0.7 MG/DL (0.3-1.2); BLOOD UREA NITROGEN 22 MG/DL (9-23); CALCIUM LEVEL 9.1 MG/DL (8.3-10.6); CARBON DIOXIDE LEVEL 28 MMOL/L (20-31); CHLORIDE LEVEL 102 MMOL/L (98-107); CREATININE FOR GFR 0.88 MG/DL (0.55-1.30); GLOMERULAR FILTRATION RATE > 60.0 (>39); GLUCOSE, FASTING 203 MG/DL (74-106); MAGNESIUM LEVEL 1.8 MG/DL (1.8-2.4); POTASSIUM SERUM 5.2 MMOL/L (3.5-5.1); SODIUM LEVEL 138 MMOL/L (136-145); TOTAL PROTEIN 6.1 G/DL (5.7-8.2)
[2024-06-01 10:45] LABS: PHOSPHORUS LEVEL 4.2 MG/DL (2.4-5.1)
[2024-06-01] MEDS: hydrALAZINE 20MG/ML 1ML VIAL IV PRN (10:56)
[2024-06-01] MEDS ORDERED: hydrALAZINE 20MG/ML 1ML VIAL IV ONE (11:05)
[2024-06-01] MEDS ORDERED: MAALOX 30 ML SUSP *UDC PO PRN (11:15)
[2024-06-01] MEDS ORDERED: MOM 30ML SUSPENSION UDC PO PRN (11:15)
[2024-06-01 12:45] VITALS: BP 182/78; TEMP 97.8; O2SAT 95
[2024-06-01] MEDS ORDERED: GLUCAGON INJ 1MG VIAL SC PRN (12:50)
[2024-06-01] MEDS ORDERED: GLUCOSE 4 GM CHEW PO PRN (12:50)
[2024-06-01] MEDS ORDERED: DEXTROSE 50% 50ML SYRINGE IV PRN (12:50)
[2024-06-01] MEDS ORDERED: hydrALAZINE 20MG/ML 1ML VIAL IV PRN (13:00)
[2024-06-01] MEDS: LORazepam 2 MG/ML 1ML VIAL IV ONE (13:49)
[2024-06-01 14:50] LABS: BLOOD UREA NITROGEN 20 MG/DL (9-23); CALCIUM LEVEL 9.1 MG/DL (8.3-10.6); CARBON DIOXIDE LEVEL 29 MMOL/L (20-31); CHLORIDE LEVEL 105 MMOL/L (98-107); CREATININE FOR GFR 0.88 MG/DL (0.55-1.30); GLOMERULAR FILTRATION RATE > 60.0 (>39); GLUCOSE, FASTING 207 MG/DL (74-106); POTASSIUM SERUM 4.6 MMOL/L (3.5-5.1); SODIUM LEVEL 141 MMOL/L (136-145)
[2024-06-01 16:00] VITALS: BP 184/76; TEMP 97; O2SAT 99
[2024-06-01] MEDS: **hydrALAZINE** 10 MG TAB PO SCH ×2 (16:03→21:45)
[2024-06-01] MEDS ORDERED: HOME MED LIST COMPLETE! XX SCH (16:35)
[2024-06-01] MEDS: INSULIN LISPRO (NovoLOG) PER UNIT SC SCH ×3 (17:34→21:57)
[2024-06-01 18:33] VITALS: BP 172/68
[2024-06-01 19:32] VITALS: BP 168/70; TEMP 97.5; O2SAT 96
[2024-06-01] MEDS: LOSARTAN 50MG TABLET PO SCH (21:46)
[2024-06-01 23:56] VITALS: BP 170/86; TEMP 98.1; O2SAT 99
[2024-06-02] VITALS (9 sets, daily range): BP systolic 89–172; BP diastolic 51–100; TEMP 97.2–98.5; O2SAT 81–99
[2024-06-02] MEDS: **hydrALAZINE** 50 MG TAB PO SCH (07:25)
[2024-06-02] MEDS ORDERED: **hydrALAZINE** 10 MG TAB PO SCH (09:00)
[2024-06-02] MEDS: ENOXAPARIN 40MG/0.4ML SYRINGE (J1650 PER 10MG) SC SCH (09:03)
[2024-06-02] MEDS: INSULIN LISPRO (NovoLOG) PER UNIT SC SCH (09:04)
[2024-06-02] MEDS: FUROSEMIDE 20 MG TAB PO SCH (09:05)
[2024-06-02] MEDS: ACETAMINOPHEN 325 MG TAB PO PRN (09:08)
[2024-06-02] MEDS ORDERED: HYDR50TA46 PO (12:19)
[2024-06-02 16:46] LABS: BLOOD UREA NITROGEN 19 MG/DL (9-23); CALCIUM LEVEL 8.8 MG/DL (8.3-10.6); CARBON DIOXIDE LEVEL 26 MMOL/L (20-31); CHLORIDE LEVEL 101 MMOL/L (98-107); CREATININE FOR GFR 0.88 MG/DL (0.55-1.30); GLOMERULAR FILTRATION RATE > 60.0 (>39); GLUCOSE, FASTING 201 MG/DL (74-106); MAGNESIUM LEVEL 1.8 MG/DL (1.8-2.4); POTASSIUM SERUM 4.2 MMOL/L (3.5-5.1); SODIUM LEVEL 141 MMOL/L (136-145)
[2024-06-02] MEDS: LOSARTAN 25 MG TAB PO SCH (18:09)
[2024-06-02] MEDS: **hydrALAZINE** 10 MG TAB PO SCH (18:10)
[2024-06-03 03:25] VITALS: BP 226/98; TEMP 97.5; O2SAT 94
[2024-06-03 05:15] VITALS: BP 158/64
[2024-06-03 07:54] VITALS: BP 164/76; TEMP 98.1; O2SAT 92
[2024-06-03 08:57] VITALS: BP 164/76
[2024-06-03] MEDS ORDERED: HYDR-161 PO (11:20)
[2024-06-03] MEDS ORDERED: LOSA-527 PO (11:22)
== END 2024-06-03 12:43 | disposition home or self-care (01) | DRG 305 ==
LOC: M SDC 08:15 → M ED INP 08:16 → M PCU 12:39 → OBSVTOIN 06-02 14:32
PROVIDERS: ADMIT Student in an Organized Health Care Education/Training Program; ATTEND Student in an Organized Health Care Education/Training Program
PROC: B246ZZZ Ultrasonography of Right and Left Heart (ICD-10-PCS; principal; 2024-06-01)
DX: I16.0 Hypertensive urgency (principal); I45.2 Bifascicular block; I10 Essential (primary) hypertension; K21.9 Gastro-esophageal reflux disease without esophagitis; M19.90 Unspecified osteoarthritis, unspecified site; E10.9 Type 1 diabetes mellitus without complications; H26.9 Unspecified cataract; R00.1 Bradycardia, unspecified; E87.5 Hyperkalemia; Z79.4 Long term (current) use of insulin; Z79.84 Long term (current) use of oral hypoglycemic drugs; Z79.899 Other long term (current) drug therapy; Z90.49 Acquired absence of other specified parts of digestive tract; Z88.2 Allergy status to sulfonamides; I95.9 Hypotension, unspecified; T46.5X5A Adverse effect of other antihypertensive drugs, initial encounter

== ENCOUNTER → 2024-06-03 | Outpatient (CLI) | payer MEDICARE ==
[~2024-06-03] MED LIST changes: +ALPR0.25 PO; -CYCLOPENTOLATE 1% OPHTH SOLN 2ML BTL OS SCH; +HYDR-161 PO; +HYDR50TA46 PO; +LOSA-527 PO; -MIDAZOLAM INJ 2MG/2ML VIAL As Ordered ONE; -PHENYLEPHRINE 10% OPHTH SOL 5ML OS PRN; -PHENYLEPHRINE 2.5% OPHTH SOL 2ML OS SCH; -TROPICAMIDE 1% OPHTH SOLN 15ML OS SCH; -fentaNYL 100 MCG/2 ML INJECTION As Ordered ONE
== END ==
LOC: M EKG 12:52
PROVIDERS: ATTEND Student in an Organized Health Care Education/Training Program
DX: R00.1 Bradycardia, unspecified (principal)